=== PATIENT | male | born 1950 | race Caucasian/White ===

== ENCOUNTER 2020-09-10 09:30 | Emergency (ER) | payer BC, OTHER ==
[2020-09-10 10:35] LABS: Absolute Lymphocytes (CBC) 0.5 K/uL (0.7-4.9); Basophils % 0.4 % (0-1.3); Hematocrit 47.3 % (39.6-49.0); MPV 8.7 fL (7.6-11.3)
[2020-09-10 10:40] LABS: Protime INR 1.05
[2020-09-10 10:54] LABS: Blood Morphology Comment NOT SEEN (NOT SEEN); Platelet Estimate ADEQ; White Blood Cell Scan OK (OK)
[2020-09-10 11:06] LABS: Albumin 3.1 g/dL (3.4-5.0); Bilirubin Direct 0.3 mg/dL (0-0.2); Bilirubin Total 0.8 mg/dL (0.2-1.0); Potassium 3.9 mmol/L (3.5-5.1); Protein, Total 7.1 g/dL (6.4-8.2)
--- NOTE | 2020-09-10 11:09 | RAD REPORT ---
EXAM DESCRIPTION: CT - Chest For Pe Angio - 09/10/2020 10:44 am CLINICAL HISTORY: Shortness of breath COMPARISON: None. TECHNIQUE: Dynamically enhanced axial 3 mm thick images of the chest were obtained during administra tion of <100> mL Isovue 370 IV contrast. Coronal and oblique reconstruction images were generated and reviewed. Exam utilizes a protocol for optimal evaluation of pulmonary arterial tree. Maximum intensity projections 3D imaging was utilized All CT scans are performed using dose optimization technique as appropriate and may include automated exposure control or mA/KV adjustment according to patient size. FINDINGS: A pulmonary embolus is not seen. A thoracic aortic aneurysm is not noted. A pleural effusion is not seen. A pericardial effusion is not seen. A lung consolidation is not present. IMPRESSION: Negative for a pulmonary embolism.
--- NOTE | 2020-09-10 11:21 | RAD REPORT ---
EXAM DESCRIPTION: [facility] Single View09/10/2020 10:52 am CLINICAL HISTORY: Shortness breath COMPARISON: none FINDINGS: The lungs appear clear of acute infiltrate. The heart is normal size IMPRESSION: No acute abnormalities displayed
--- NOTE | 2020-09-10 11:32 | RAD REPORT ---
EXAM DESCRIPTION: CT - Abdomen Pelvis W Contrast - 09/10/2020 10:44 am CLINICAL HISTORY: Abdominal pain COMPARISON: none. TECHNIQUE: Computed axial tomography of the abdomen pelvis was obtained. 100 cc Isovue-300 was admin istered intravenously. Oral contrast was not requested which limits evaluation of bowel. All CT scans are performed using dose optimization technique as appropriate and may include automated exposure control or mA/KV adjustment according to patient size. FINDINGS: 12 millimeter low-density structure pancreatic. The remainder the pancreas is unremarkable . Liver, spleen, adrenals and kidneys unremarkable The stomach is distended. Mild dilatation of jejunum and ileum. Right hemicolectomy. Mild thickening of the wall several loops of jejunum. There is no evidence of diverticulitis. Small amount of ascites. Small left inguinal hernia contains fat. Small to moderate right inguinal hernia contains ascites fat. Punctate air bubble within the bladder probably post instrumentation. IMPRESSION: Right hemicolectomy. Mild dilatation of all of the small bowel probably an ileus. An obs truction at the anastomotic site can have a similar appearance so followup is recommended. Mild thickening of the wall of several loops of ileum may be related to inflammation Gastric distention 12 millimeter low-density area within the pancreas appears cystic. MRI pancreas recommended
[2020-09-10] MEDS ORDERED: NA CHLORIDE 0.9% 500 ML ONE (11:55)
[2020-09-10] MEDS ORDERED: MORPHINE 4 MG/ML SYR ONE (12:49)
[2020-09-10] MEDS ORDERED: ONDANSETRON 4 MG/2 ML VIAL ONE (12:49)
[2020-09-10] MEDS ORDERED: LIDOCAINE VISCOUS 2% SOLN 15 ML UDC ONE (13:01)
--- NOTE | 2020-09-10 13:35 | ER ---
Nurse's Notes [facility] Name: Semaj Coburn Age: 70 yrs Sex: Male : 1950 Arrival Date: 09/10/2020 Time: 09:34 Bed 20 Private MD: Diagnosis: Ileus, unspecified;Dehydration;Dyspnea, unspecified Presentation: 09/10 09:52 Chief complaint: Patient states: "I just had a growth removed from my colon at [facility] go released on the but now I am short of breath" . 09:52 Coronavirus screen: At this time, the client does not indicate any symptoms associated aa5 with coronavirus-19. Ebola Screen: Patient negative for fever greater than or equal to 101.5 degrees Fahrenheit, and additional compatible Ebola Virus Disease symptoms. Initial Sepsis Screen: Does the patient meet any 2 criteria? RR > 20 per min. HR > 90 bpm. Does the patient have a suspected source of infection? No. Patient's initial sepsis screen is negative. Risk Assessment: Do you want to hurt yourself or someone else? Patient reports no desire to harm self or others. Onset of symptoms was August 2020. 09:52 Acuity: FRANCO 2 aa5 09:52 Method Of Arrival: Wheelchair aa5 Triage Assessment: 16:49 Respiratory: zb Historical: - Allergies: 10:03 No Known Allergies; aa5 - PMHx: 10:03 Hypertension; Prostate Cancer; aa5 - PSHx: 10:03 Mass removed from colon; aa5 10:12 Prostate removed; aa5 - Immunization history:: Adult Immunizations unknown. - Social history:: Smoking status: Patient denies any tobacco usage or history of. - Family history:: not pertinent. - Hospitalizations: : Patient was recently seen at. Screenin:10 Abuse screen: Denies threats or abuse. Denies injuries from another. Nutritional jl7 screening: No deficits noted. Tuberculosis screening: No symptoms or risk factors identified. Fall Risk IV access (20 points). Total Yao Fall Scale indicates No Risk (0-24 pts). Assessment: 10:10 General: Appears in no apparent distress. uncomfortable, Behavior is calm, cooperative, jl7 appropriate for age. Pain: Denies pain. Neuro: Level of Consciousness is awake, alert, obeys commands, Oriented to person, place, time, situation. Cardiovascular: Denies chest pain, Patient's skin is warm and dry. Rhythm is regular. Respiratory: Airway is patent Respiratory effort is even, labored, Respiratory pattern is symmetrical, tachypnea Breath sounds are clear bilaterally. GI: Abdomen is non-distended, Abdomen is tender to palpation X 4 quads. Derm: Skin is pink, warm \\T\\ dry. 12:33 Reassessment: Patient appears in no apparent distress at this time. Patient and/or zb family updated on plan of care and expected duration. Pain level reassessed. Patient is alert, oriented x 3, equal unlabored respirations, skin warm/dry/pink. pt rates pain 4/10. 13:30 Reassessment: Patient appears in no apparent distress at this time. Patient and/or zb family updated on plan of care and expected duration. Pain level reassessed. Patient is alert, oriented x 3, equal unlabored respirations, skin warm/dry/pink. 16 F NG to right nare. pt placed on low intermittent suction. patient tolerated well. 14:30 Reassessment: Patient appears in no apparent distress at this time. Patient and/or zb family updated on plan of care and expected duration. Pain level reassessed. Patient is alert, oriented x 3, equal unlabored respirations, skin warm/dry/pink. pt remains in npo. NG to right nare. low intermittent suction. pt tolerated well. 15:30 Reassessment: Patient appears in no apparent distress at this time. Patient and/or zb family updated on plan of care and expected duration. Pain level reassessed. Patient is alert, oriented x 3, equal unlabored respirations, skin warm/dry/pink. NG remains intact. LOW intermittent suction patient tolerated well. remain npo. 16:51 Reassessment: EMS received report. NG tube remains intact and in right nare. patient zb able to stretcher. Vital Signs: 09:52 BP 94 / 63; Pulse 105; Resp 26 S; Pulse Ox 99% on R/A; Weight 98.43 kg (R); Height 5 aa5 ft. 8 in. (172.72 cm) (R); Pain 4/10; 10:10 BP 121 / 81; Pulse 92; Resp 19; Pulse Ox 99% ; Pain 0/10; jl7 11:30 BP 110 / 73; Pulse 81; Resp 15; Pulse Ox 95% ; Pain 0/10; jl7 12:15 BP 118 / 76; Pulse 97; Resp 18; Pulse Ox 100% on R/A; zb 13:15 BP 110 / 68; Pulse 81; Resp 16; Pulse Ox 99% on R/A; zb 14:45 BP 126 / 74; Pulse 88; Resp 18; Pulse Ox 93% on R/A; zb 15:30 BP 124 / 71; Pulse 85; Resp 16; Pulse Ox 94% on R/A; zb 16:15 BP 129 / 73; Pulse 83; Resp 16; Temp 98.7(O); Pulse Ox 96% on R/A; zb 09:52 Body Mass Index 32.99 (98.43 kg, 172.72 cm) aa5 ED Course: 09:34 Patient arrived in ED. mr 09:52 Arm band placed on. EKG completed in triage. Results shown to MD. aa5 10:02 Triage completed. aa5 10:04 Angel Patrick, JACK is Primary Nurse. jl7 10:05 Carlitos Adorno MD is Attending Physician. rn 10:10 Patient has correct armband on for positive identification. Placed in gown. Bed in low jl7 position. Call light in reach. Side rails up X2. Adult w/ patient. gambling monitor on. Pulse ox on. NIBP on. Warm blanket given. 10:20 Initial lab(s) drawn, by al, sent to lab. Inserted saline lock: 20 gauge in right jl7 forearm, using aseptic technique. Blood collected. 10:44 CT Chest For PE Angio In Process Unspecified. EDMS 10:44 CT Abd/Pelvis - IV Contrast Only In Process Unspecified. EDMS 10:52 XRAY Chest (1 view) In Process Unspecified. EDMS 11:30 contacted [facility] to [facility] transfer, was notified they are at full mt capacity but will have discharges coming up. Was also notified to contact the patients surgeon at [phone]. 12:35 Primary Nurse role handed off by Angel Patrick, JACK zb 12:35 Johana Clinton, JACK is Primary Nurse. zb 13:25 Dr Adorno talking to Dr. Duque for continuity of care consult regarding transfer. mt 15:14 Dr Adorno giving report to the hospitalist,Dr Mendoza. or 15:18 Admin approval given by Nhung Whiteside, distribution warehouse manager, to [facility] [address] Mendoza. 16:48 Report given to EMS [place]. zb 16:49 No provider procedures requiring assistance completed. Patient transferred, IV remains zb in place. Administered Medications: 11:30 Drug: NS 0.9% 500 ml Route: IV; Rate: bolus; Site: right antecubital; jl7 12:30 Follow up: Response: No adverse reaction; IV Status: Completed infusion; IV Intake: zb 500ml 12:34 Drug: morphine 4 mg {Note: RASS 0.} Route: IVP; Site: left forearm; zb 13:00 Follow up: Response: No adverse reaction; Pain is decreased; RASS: Alert and Calm (0) zb 12:34 Drug: Zofran (Ondansetron) 4 mg Route: IVP; Site: right forearm; zb 13:00 Follow up: Response: No adverse reaction zb Intake: 12:30 IV: 500ml; Total: 500ml. zb Output: 16:55 Gastric: 600ml (NGT); Total: 600ml. zb Outcome: 13:34 ER care complete, transfer ordered by . rn 16:50 Transferred by ground EMS to [facility], Transfer form completed. Note: zb Report given to JACK blake 16:50 Condition: improved 16:50 Instructed on the need for transfer, Demonstrated understanding of instructions. 17:04 Patient left the ED. zb Signatures: Dispatcher [employer] [facility] Cathy Lugo Carlitos Odom MD MD rn Calderon, Audri, RN RN aa5 Angel Patrick RN RN [id number] Shannan Hui or Johana Clinton RN RN zb Corrections: (The following items were deleted from the chart) 12:13 10:20 Inserted saline lock: 20 gauge in right antecubital area, using aseptic jl7 technique. Blood collected. [facility] 13:25 13:08 contacted [facility] to initiate transfer, was notified they are at or full capacity but will have discharges coming up. Was also notified to contact the patients surgeon at [phone] or 16:38 16:15 BP 129 / 73; Pulse 83bpm; Resp 16bpm; Pulse Ox 96% RA; zb zb
--- NOTE | 2020-09-10 13:35 | EDPHYS ---
Physician Documentation [facility] Name: Semaj Coburn Age: 70 yrs Sex: Male : 1950 Arrival Date: 09/10/2020 Time: 09:34 Bed 20 Private MD: ED Physician Carlitos Adorno HPI: 09/10 10:15 This 70 yrs old Male presents to ER via Wheelchair with complaints of rn Shortness Of Breath, Weakness. 10:15 The patient has shortness of breath at rest. Onset: The symptoms/episode began/occurred rn yesterday. Duration: The symptoms are continuous. The patient's shortness of breath is aggravated by exertion, light activity. Associated signs and symptoms: Pertinent positives: This patient does not have any pertinent positive signs or symptoms associated with shortness of breath. Pertinent negatives: fever, hemoptysis. Severity of symptoms: At their worst the symptoms were moderate in the emergency department the symptoms are unchanged. The patient has not experienced similar symptoms in the past. The patient has been recently seen by a physician:. Reports just had colon mass resection at [facility] 2 days ago, was doing ok, yesterday began with sob and pain. No hemoptysis, no fever, no trauma. No hx of dvt/PE. Historical: - Allergies: 10:03 No Known Allergies; aa5 - PMHx: 10:03 Hypertension; Prostate Cancer; aa5 - PSHx: 10:03 Mass removed from colon; aa5 10:12 Prostate removed; aa5 - Immunization history:: Adult Immunizations unknown. - Social history:: Smoking status: Patient denies any tobacco usage or history of. - Family history:: not pertinent. - Hospitalizations: : Patient was recently seen at. ROS: 10:15 Constitutional: Negative for fever, chills, and weight loss, Eyes: Negative for injury, rn pain, redness, and discharge, Neck: Negative for injury, pain, and swelling, Cardiovascular: Negative for palpitations, and edema, Respiratory: Negative for cough, wheezing Abdomen/GI: + mild abd pain, neg for vomiting/diarrhea Back: Negative for injury and pain, : Negative for injury, bleeding, discharge, and swelling, MS/Extremity: Negative for injury and deformity, Skin: Negative for injury, rash, and discoloration, Neuro: Negative for headache, numbness, tingling, and seizure. Exam: 10:15 Constitutional: This is a well developed, well nourished patient who is awake, alert, rn appears uncomfortable Head/Face: Normocephalic, atraumatic. Eyes: Periorbital areas with no swelling, redness, or edema. ENT: MMM Cardiovascular: Tachycardic, regular Respiratory: + mild tachypnea, no wheezing, + diminished at bases Abdomen/GI: soft, + mild tenderness around surgical wounds, no peritoneal signs, no flank or abd ecchymosis. Skin: Warm, dry MS/ Extremity: Pulses equal, no cyanosis. Neurovascular intact. Full, normal range of motion. Equal circumference. Neuro: Awake and alert, GCS 15 13:36 ECG was reviewed by the Attending Physician. rn Vital Signs: 09:52 BP 94 / 63; Pulse 105; Resp 26 S; Pulse Ox 99% on R/A; Weight 98.43 kg (R); Height 5 aa5 ft. 8 in. (172.72 cm) (R); Pain 4/10; 10:10 BP 121 / 81; Pulse 92; Resp 19; Pulse Ox 99% ; Pain 0/10; jl7 11:30 BP 110 / 73; Pulse 81; Resp 15; Pulse Ox 95% ; Pain 0/10; jl7 12:15 BP 118 / 76; Pulse 97; Resp 18; Pulse Ox 100% on R/A; zb 13:15 BP 110 / 68; Pulse 81; Resp 16; Pulse Ox 99% on R/A; zb 14:45 BP 126 / 74; Pulse 88; Resp 18; Pulse Ox 93% on R/A; zb 15:30 BP 124 / 71; Pulse 85; Resp 16; Pulse Ox 94% on R/A; zb 16:15 BP 129 / 73; Pulse 83; Resp 16; Temp 98.7(O); Pulse Ox 96% on R/A; zb 09:52 Body Mass Index 32.99 (98.43 kg, 172.72 cm) aa5 MDM: 10:05 Patient medically screened. rn 12:53 ED course: CT shows most likely ileus, possible early SBO, clinically more of an ileus. rn NG tube ordered but not placed yet. [facility] contacted, no beds yet, but state can try and call back because discharges pending. Will try again given recent surgery and surgeon there. . 13:30 Differential diagnosis: Anxiety Reaction pneumonia, Pneumothorax pulmonary edema, rn Pulmonary Embolism ileus, SBO. Data reviewed: vital signs, nurses notes, lab test result(s), radiologic studies, CT scan, plain films, and as a result, I will admit patient. Counseling: I had a detailed discussion with the patient and/or guardian regarding: the historical points, exam findings, and any diagnostic results supporting the discharge/admit diagnosis, lab results, radiology results, the need for further work-up and treatment in the hospital, the need to transfer to another facility. Response to treatment: the patient's symptoms have markedly improved after treatment, and as a result, I will admit patient. ED course: Markedly improved after NG tube, already 500 cc green liquid out, can breathe better, consulted with his surgeon and happy to take as transfer when bed opens up.. 09/10 10:12 Order name: CBC with Diff; Complete Time: 11: rn 09/10 10:12 Order name: Basic Metabolic Panel; Complete Time: : rn 09/10 10:12 Order name: Protime (+inr); Complete Time: : rn 09/10 10:12 Order name: Ptt, Activated; Complete Time: : rn 09/10 10:12 Order name: LFT's; Complete Time: : rn 09/10 10:12 Order name: Lipase; Complete Time: 11: rn 09/10 10:12 Order name: CT Chest For PE Angio; Complete Time: 11: rn 09/10 10:12 Order name: CT Abd/Pelvis - IV Contrast Only; Complete Time: 11:37 rn 09/10 10:14 Order name: XRAY Chest (1 view); Complete Time: 11:37 rn 09/10 10:37 Order name: CBC Smear Scan; Complete Time: 11:11 EDOH 09/10 12:17 Order name: CREATININE WHOLE BLOOD; Complete Time: 12:53 EDOH 09/10 10:12 Order name: IV Start; Complete Time: 10:46 rn 09/10 11:42 Order name: NG Tube; Complete Time: 13:13 rn EC:36 Rate is 102 beats/min. Rhythm is regular. QRS [place] is Normal. GA interval is normal. rn QRS interval is normal. QT interval is normal. No Q waves. T waves are Normal. No ST changes noted. Clinical impression: Sinus tachycardia. Interpreted by me. Reviewed by me. Administered Medications: 11:30 Drug: NS 0.9% 500 ml Route: IV; Rate: bolus; Site: right antecubital; jl7 12:30 Follow up: Response: No adverse reaction; IV Status: Completed infusion; IV Intake: zb 500ml 12:34 Drug: morphine 4 mg {Note: RASS 0.} Route: IVP; Site: left forearm; zb 13:00 Follow up: Response: No adverse reaction; Pain is decreased; RASS: Alert and Calm (0) zb 12:34 Drug: Zofran (Ondansetron) 4 mg Route: IVP; Site: right forearm; zb 13:00 Follow up: Response: No adverse reaction zb Disposition: 09/10/20 13:34 Transfer ordered to [facility]. Diagnosis are Ileus, unspecified, Dehydration, Dyspnea, unspecified. - Reason for transfer: Higher level of care. - Accepting physician is Dr. Dunne. - Condition is Stable. - Problem is new. - Symptoms have improved. Signatures: Dispatcher [employer] EDMS Carlitos Adorno MD MD rn Calderon, Audri RN RN aa5 Angel Patrick RN RN jl7 Johana Clinton RN RN zb Corrections: (The following items were deleted from the chart) 17:04 13:34 09/10/2020 13:34 Transfer ordered to [facility]. Diagnosis is Ileus, zb unspecified; Dehydration; Dyspnea, unspecified. Reason for transfer: Higher level of care. Accepting physician is Dr. Dunne. Condition is Stable. Problem is new. Symptoms have improved. rn
[2020-09-10 17:24] VITALS: BP 129/73; TEMP 98.7; O2SAT 96
== END 2020-09-10 17:04 | disposition short-term general hospital (02) ==
LOC: ER 09:30
DX: K56.7 Ileus, unspecified (principal); E86.0 Dehydration; Z98.890 Other specified postprocedural states; I10 Essential (primary) hypertension; Z85.46 Personal history of malignant neoplasm of prostate
CPT/HCPCS: 93005; 85025; 80048; 36415; 85610; 82565; 80076; 85730; 83690; 71275; 74177; 71045; 99285; Q9967; J7040; J2405